=== PATIENT | male | born 1950 | race Caucasian/White ===

== ENCOUNTER 2016-10-27 12:14 | Emergency (ER) | payer OTHER ==
[~2016-10-27] VITALS: Ht 172.7 cm; Wt 100.7 kg
[~2016-10-27 12:14] MED LIST: ALBUTEROL0.09 MG/A2 IH; AMOXICILLIN500 MG PO; ANTIVERT/2525 MG PO; ATARAX25 MG PO; AUGMENTIN 875 M1 TA1 PO; AUGMENTIN 875 M1 TAB PO; AZITHROMYCIN500 M1 PO; BACTRIM DS 8001 TA1 PO; CIPRO500 MG PO; CIPROFLOXACIN500 MG PO; CLINDAMYCIN300 MG PO; COREG3.125 MG PO; COREG6.25 MG PO; DAYPRO600 M1 PO; ELIMITE 5%60 GM PO; FLONASE 0.05% 121 EA NAS; GABAPENTIN300 MG PO; GLIPIZIDE5 MG PO; GLUCOPHAGE500 MG PO; HYDROCODONE BIT1 T11 PO; HYDRODIURIL25 MG PO; KEFLEX500 MG PO; LISINOPRIL10 M1 PO; LISINOPRIL10 MG PO; LISINOPRIL5 MG PO; LOPRESSOR25 MG PO; MECLIZINE HCL25 M2 PO; MEDROL DOSEPAK4 MG PO; METFORMIN HCL500 MG PO; METFORMIN HYDR500 M1 PO; METFORMIN500 MG PO; MOTRIN800 MG PO; NAPROSYN500 MG PO; NEURONTIN300 MG PO; PREDNISONE10 MG PO; PREVACID SOLUTA30 MG PO; ROBAXIN750 MG PO; TYLENOL W/CODEI1 TA2 PO; VENTOLIN H0.09 MG/AC INH; ZITHROMAX Z PA250 MG PO
[2016-10-27 12:37] LABS: BILIRUBIN NEGATIVE (NEGATIVE); BLOOD 3+ (NEGATIVE); CLARITY TURBID (CLEAR); COLOR YELLOW (YELLOW); GLUCOSE 2+ (NEGATIVE); KETONE NEGATIVE (NEGATIVE); LEUKO ESTERASE 3+ (NEGATIVE); NITRITE POSITIVE (NEGATIVE); PH 8.5 (5.0-9.0); PROTEIN 3+ (NEGATIVE)
[2016-10-27 12:51] LABS: BACTERIA 3+; WBC TNTC wbc/hpf (0-5)
[2016-10-27 12:52] LABS: URINE REFLEX COMMENT YES (NO)
[2016-10-27] MEDS ORDERED: MACROBID100 M1 PO (12:54)
== END 2016-10-27 12:57 | disposition home or self-care (01) ==
LOC: ED 12:14
PROVIDERS: Nurse Practitioner Family
DX: N39.0 Urinary tract infection, site not specified (principal); R31.9 Hematuria, unspecified; R03.0 Elevated blood-pressure reading, without diagnosis of hypertension; F17.200 Nicotine dependence, unspecified, uncomplicated

== ENCOUNTER 2016-11-10 07:54 | Inpatient (IN) | payer OTHER ==
[~2016-11-10] VITALS: Ht 175.2 cm; Wt 99.8 kg
[~2016-11-10 07:54] MED LIST changes: +MACROBID100 M1 PO
[2016-11-10 07:59] VITALS: BP 145/88
[2016-11-10] MEDS ORDERED: NOVAPLUS V0.09 MG/Ac INH (08:01)
[2016-11-10] MEDS ORDERED: GLUCOPHAGE500 M1 PO (08:02)
[2016-11-10 08:20] LABS: BILIRUBIN NEGATIVE (NEGATIVE); BLOOD 3+ (NEGATIVE); CLARITY CLOUDY (CLEAR); COLOR YELLOW (YELLOW); GLUCOSE TRACE (NEGATIVE); KETONE NEGATIVE (NEGATIVE); NITRITE POSITIVE (NEGATIVE); PH >= 9.0 (5.0-9.0); PROTEIN 2+ (NEGATIVE); SPECIFIC GRAVITY 1.015 (1.005-1.030)
[2016-11-10 08:30] LABS: HEMATOCRIT 52.4 % (42.0-52.0); HEMOGLOBIN 17.1 g/dl (14.0-18.0); MEAN CELL VOLUME 93.7 fl (80.0-94.0); MEAN CORPUSCULAR HGB 30.6 pg (27.0-31.0); MEAN CORPUSCULAR HGB CONC 32.6 g/dl (33.0-37.0); MEAN PLATELET VOLUME 9.8 fl (9.6-12.3); PLATELET COUNT AUTOMATED 298 10*3/uL (130-400); RED BLOOD COUNT 5.59 10*6/uL (4.50-5.90); RED CELL DISTRI WIDTH 13.2 % (0-14.5); WHITE BLOOD COUNT 24.4 10*3/uL (4.8-10.8)
[2016-11-10 08:37] VITALS: BP 148/72
[2016-11-10 08:38] LABS: INTERNATIONAL NORM RATIO 1.1 (2.0-3.5); PROTHROMBIN TIME 11.6 SECONDS (9.0-12.4)
[2016-11-10 08:39] LABS: LEUKO ESTERASE 2+ (NEGATIVE)
[2016-11-10 08:40] LABS: BACTERIA 4+; TRIP PHOS CRYSTALS 1+; URINE REFLEX COMMENT YES (NO); WBC 51-100 wbc/hpf (0-5)
[2016-11-10 08:48] LABS: ATYPICAL LYMPHS 1 % (0-0); MONOCYTE # 0.7 10*3/uL (0.1-1.0); NEUTROPHIL # 22.7 10*3/uL (2.3-7.9); NEUTROPHILS 93 % (47-73); PLATELET SUFFICIENCY NORMAL (NORMAL); TOTAL CELLS COUNTED 100 #CELLS
[2016-11-10 09:09] LABS: ALBUMIN 3.4 gm/dl (3.1-4.5); ALKALINE PHOSPHATASE 121 U/L (45-117); BUN 27 mg/dl (7-24); C-REACTIVE PROTEIN 7.16 MG/DL (0-0.3); CARBON DIOXIDE 24 mmol/L (21-32); CHLORIDE 104 mmol/L (98-107); CKMB 2.8 ng/ml (0.5-3.6); CPK 74 U/L (39-308); EST GLOM FILT AFRICAN AMERICAN > 60 ml/min; GLUCOSE 236 mg/dL (65-99); SGOT/AST 18 IU/L (3-35); SGPT/ALT 23 U/L (12-78); SODIUM 137 mmol/L (136-145); TOTAL PROTEIN 7.9 gm/dL (6.4-8.2)
[2016-11-10 09:16] LABS: TROPONIN I < 0.015 ng/ml (<0.045)
[2016-11-10 09:23] VITALS: BP 154/70
[2016-11-10 10:27] LABS: LA>2 REFLEX 2 HR DRAW NOW
[2016-11-10 10:31] VITALS: BP 135/74
[2016-11-10 10:46] LABS: LA>2 RFLX FOLLOW UP AT 2 HRS 2.7 mmol/L (0.4-2.0)
[2016-11-10 12:34] LABS: LA>2 REFLEX 4 HR DRAW NOW
[2016-11-10 16:00] VITALS: BP 159/64
[2016-11-10 20:00] VITALS: BP 143/60
[2016-11-11] VITALS: BP 101/45
[2016-11-11 06:50] LABS: HEMATOCRIT 50.1 % (42.0-52.0); HEMOGLOBIN 15.9 g/dl (14.0-18.0); MEAN CELL VOLUME 95.6 fl (80.0-94.0); MEAN CORPUSCULAR HGB 30.3 pg (27.0-31.0); MEAN CORPUSCULAR HGB CONC 31.7 g/dl (33.0-37.0); MEAN PLATELET VOLUME 9.9 fl (9.6-12.3); PLATELET COUNT AUTOMATED 261 10*3/uL (130-400); RED BLOOD COUNT 5.24 10*6/uL (4.50-5.90); RED CELL DISTRI WIDTH 13.5 % (0-14.5); WHITE BLOOD COUNT 13.3 10*3/uL (4.8-10.8)
[2016-11-11 07:14] LABS: ALBUMIN 2.9 gm/dl (3.1-4.5); ALKALINE PHOSPHATASE 105 U/L (45-117); BILIRUBIN, TOTAL 0.4 mg/dl (0.2-1.0); BUN 25 mg/dl (7-24); CARBON DIOXIDE 29 mmol/L (21-32); CHLORIDE 107 mmol/L (98-107); CHOLESTEROL 128 mg/dL (<200); EST GLOM FILT AFRICAN AMERICAN > 60 ml/min; GLUCOSE 133 mg/dL (65-99); POTASSIUM 4.4 mmol/L (3.5-5.1); SGOT/AST 19 IU/L (3-35); SGPT/ALT 24 U/L (12-78); SODIUM 140 mmol/L (136-145); TOTAL PROTEIN 7.4 gm/dL (6.4-8.2); TRIGLYCERIDES 145 mg/dl (<150); VLDL CHOLESTEROL 29 mg/dL (6-40)
[2016-11-11 07:21] LABS: FREE T4 1.02 ng/dl (0.76-1.46); HDL CHOLESTEROL 37 mg/dl (40-60); HEMOGLOBIN A1c 8.5 % (4.8-5.6); LDL CHOLESTEROL 62 mg/dL (9-159)
[2016-11-11 07:23] LABS: FOLIC ACID 12.14 ng/mL (>5.38)
[2016-11-11 07:44] LABS: EOSINOPHIL # 0.1 10*3/uL (0-0.4); EOSINOPHILS 1 % (1-4); LYMPHOCYTE # 2.7 10*3/uL (1.3-4.4); MONOCYTE # 1.6 10*3/uL (0.1-1.0); NEUTROPHIL # 8.9 10*3/uL (2.3-7.9); NEUTROPHILS 67 % (47-73); PLATELET SUFFICIENCY NORMAL (NORMAL); TOTAL CELLS COUNTED 100 #CELLS
[2016-11-11 08:00] VITALS: BP 150/78
[2016-11-11 11:48] VITALS: BP 170/80
[2016-11-11 16:00] VITALS: BP 160/72
[2016-11-11 20:00] VITALS: BP 166/78
[2016-11-12] VITALS: BP 174/83
[2016-11-12 05:57] LABS: BASO # 0.1 10*3/uL (0.0-0.1); BASO % 0.5 % (0.0-1.0); EOS # 0.2 10*3/uL (0.0-0.4); EOS % 2.2 % (1.0-4.0); HEMATOCRIT 47.2 % (42.0-52.0); IG # 0.1 10*3/uL (0.0-0.1); LYMPH # 2.2 10*3/uL (1.3-4.4); MEAN CELL VOLUME 95.7 fl (80.0-94.0); MEAN CORPUSCULAR HGB 30.4 pg (27.0-31.0); MEAN CORPUSCULAR HGB CONC 31.8 g/dl (33.0-37.0); MEAN PLATELET VOLUME 10.2 fl (9.6-12.3); MONO # 1.1 10*3/uL (0.1-1.0); MONO % 10.1 % (3.0-9.0); NEUT # 6.9 10*3/uL (2.3-7.9); NEUT % 65.7 % (47.0-73.0); PLATELET COUNT AUTOMATED 262 10*3/uL (130-400); RED BLOOD COUNT 4.93 10*6/uL (4.50-5.90); RED CELL DISTRI WIDTH 13.3 % (0-14.5); WHITE BLOOD COUNT 10.5 10*3/uL (4.8-10.8)
[2016-11-12 08:21] VITALS: BP 166/75
[2016-11-12 12:03] VITALS: BP 163/72
[2016-11-12] MEDS ORDERED: BACTRIM DS 8001 TA1 PO (13:37)
[2016-11-12 16:00] VITALS: BP 162/76
== END 2016-11-12 17:00 | disposition home or self-care (01) | DRG 871 ==
LOC: ED 07:54 → 4E 09:17 → EDHOLD 09:17 → 4E 09:30
PROVIDERS: Emergency Medicine; Internal Medicine Hospice and Palliative Medicine
DX: A41.9 Sepsis, unspecified organism (principal); N17.0 Acute kidney failure with tubular necrosis; N39.0 Urinary tract infection, site not specified; E44.0 Moderate protein-calorie malnutrition; R65.20 Severe sepsis without septic shock; R79.82 Elevated C-reactive protein (CRP); R74.8 Abnormal levels of other serum enzymes; E11.40 Type 2 diabetes mellitus with diabetic neuropathy, unspecified; E11.65 Type 2 diabetes mellitus with hyperglycemia; I10 Essential (primary) hypertension; F17.210 Nicotine dependence, cigarettes, uncomplicated; J44.9 Chronic obstructive pulmonary disease, unspecified; G89.29 Other chronic pain; M54.16 Radiculopathy, lumbar region; Z87.440 Personal history of urinary (tract) infections; Z80.9 Family history of malignant neoplasm, unspecified; Z79.84 Long term (current) use of oral hypoglycemic drugs; Z79.899 Other long term (current) drug therapy; Z71.6 Tobacco abuse counseling; Z68.32 Body mass index [BMI] 32.0-32.9, adult; R31.9 Hematuria, unspecified

== ENCOUNTER 2016-12-03 08:28 | Inpatient (IN) | payer OTHER ==
[2016-12-03] VITALS (7 sets, daily range): BP systolic 123–167; BP diastolic 60–86
[~2016-12-03] VITALS: Ht 175.2 cm; Wt 97.3 kg
[~2016-12-03 08:28] MED LIST changes: +GLUCOPHAGE500 M1 PO; +NOVAPLUS V0.09 MG/Ac INH
[2016-12-03 09:05] LABS: BILIRUBIN NEGATIVE (NEGATIVE); BLOOD 3+ (NEGATIVE); CLARITY CLOUDY (CLEAR); COLOR YELLOW (YELLOW); GLUCOSE TRACE (NEGATIVE); KETONE NEGATIVE (NEGATIVE); NITRITE NEGATIVE (NEGATIVE); PH 6.5 (5.0-9.0); PROTEIN 1+ (NEGATIVE); UROBILINOGEN 0.2 E.U./dl (0.2-1.0)
[2016-12-03 09:21] LABS: URINE REFLEX COMMENT YES (NO)
[2016-12-03 09:26] LABS: RBC 31-40 rbc/hpf (0-2); WBC TNTC wbc/hpf (0-5)
[2016-12-03 09:27] LABS: BACTERIA 2+; LEUKO ESTERASE 3+ (NEGATIVE)
[2016-12-03 10:09] LABS: HEMATOCRIT 45.3 % (42.0-52.0); HEMOGLOBIN 14.9 g/dl (14.0-18.0); MEAN CELL VOLUME 90.8 fl (80.0-94.0); MEAN CORPUSCULAR HGB 29.9 pg (27.0-31.0); MEAN CORPUSCULAR HGB CONC 32.9 g/dl (33.0-37.0); MEAN PLATELET VOLUME 9.7 fl (9.6-12.3); PLATELET COUNT AUTOMATED 381 10*3/uL (130-400); RED BLOOD COUNT 4.99 10*6/uL (4.50-5.90); RED CELL DISTRI WIDTH 13.2 % (0-14.5); WHITE BLOOD COUNT 25.2 10*3/uL (4.8-10.8)
[2016-12-03 10:21] LABS: POTASSIUM 4.4 mmol/L (3.5-5.1)
[2016-12-03 10:35] LABS: BASOPHIL # 0.3 10*3/uL (0-0.1); BASOPHILS 1 % (0-1); MONOCYTE # 0.3 10*3/uL (0.1-1.0); NEUTROPHIL # 23.7 10*3/uL (2.3-7.9); NEUTROPHILS 94 % (47-73); PLATELET SUFFICIENCY NORMAL (NORMAL); TOTAL CELLS COUNTED 100 #CELLS
[2016-12-03] MEDS ORDERED: NEURONTIN300 MG PO (11:47)
[2016-12-03] MEDS ORDERED: LISINOPRIL-HYDR1 TA1 PO (11:48)
[2016-12-03] MEDS ORDERED: METFORMIN ER500 MG PO (11:49)
[2016-12-03] MEDS ORDERED: VENTOLIN H0.09 MG/AC INH (11:50)
[2016-12-03 12:24] LABS: CKMB 1.6 ng/ml (0.5-3.6); CPK 69 U/L (39-308)
[2016-12-03 12:27] LABS: TROPONIN I < 0.015 ng/ml (<0.045)
[2016-12-03 18:24] LABS: CKMB 1.6 ng/ml (0.5-3.6); TROPONIN I 0.02 ng/ml (<0.045)
[2016-12-04] VITALS: BP 141/75
[2016-12-04 00:39] LABS: CKMB 1.8 ng/ml (0.5-3.6); TROPONIN I 0.028 ng/ml (<0.045)
[2016-12-04 07:00] LABS: BASO % 0.2 % (0.0-1.0); EOS # 0.1 10*3/uL (0.0-0.4); EOS % 0.4 % (1.0-4.0); HEMOGLOBIN 13.2 g/dl (14.0-18.0); IG # 0.1 10*3/uL (0.0-0.1); LYMPH # 1.7 10*3/uL (1.3-4.4); LYMPH % 7.6 % (27.0-41.0); MEAN CELL VOLUME 93.8 fl (80.0-94.0); MEAN CORPUSCULAR HGB 29.5 pg (27.0-31.0); MEAN CORPUSCULAR HGB CONC 31.4 g/dl (33.0-37.0); MEAN PLATELET VOLUME 10.2 fl (9.6-12.3); MONO # 1.4 10*3/uL (0.1-1.0); MONO % 6.4 % (3.0-9.0); NEUT # 18.6 10*3/uL (2.3-7.9); NEUT % 84.8 % (47.0-73.0); PLATELET COUNT AUTOMATED 364 10*3/uL (130-400); RED BLOOD COUNT 4.48 10*6/uL (4.50-5.90); RED CELL DISTRI WIDTH 13.5 % (0-14.5); WHITE BLOOD COUNT 21.9 10*3/uL (4.8-10.8)
[2016-12-04 07:34] LABS: ALBUMIN 2.1 gm/dl (3.1-4.5); MAGNESIUM 1.9 mg/dL (1.5-2.1); POTASSIUM 4.2 mmol/L (3.5-5.1)
[2016-12-04 07:36] LABS: BILIRUBIN, TOTAL 0.6 mg/dl (0.2-1.0); PHOSPHOROUS 1.9 mg/dL (2.5-4.9); TOTAL PROTEIN 7.1 gm/dL (6.4-8.2)
[2016-12-04 08:00] VITALS: BP 146/74
[2016-12-04 12:00] VITALS: BP 157/71
[2016-12-04 16:00] VITALS: BP 153/77
[2016-12-04 20:00] VITALS: BP 114/71
[2016-12-05] VITALS: BP 150/61
[2016-12-05 06:37] LABS: BASO % 0.2 % (0.0-1.0); EOS # 0.1 10*3/uL (0.0-0.4); EOS % 0.8 % (1.0-4.0); HEMATOCRIT 38.3 % (42.0-52.0); HEMOGLOBIN 12.2 g/dl (14.0-18.0); IG # 0.1 10*3/uL (0.0-0.1); LYMPH # 1.4 10*3/uL (1.3-4.4); LYMPH % 9.2 % (27.0-41.0); MEAN CELL VOLUME 94.6 fl (80.0-94.0); MEAN CORPUSCULAR HGB 30.1 pg (27.0-31.0); MEAN CORPUSCULAR HGB CONC 31.9 g/dl (33.0-37.0); MEAN PLATELET VOLUME 9.9 fl (9.6-12.3); MONO # 1.2 10*3/uL (0.1-1.0); MONO % 7.6 % (3.0-9.0); NEUT # 12.7 10*3/uL (2.3-7.9); NEUT % 81.6 % (47.0-73.0); PLATELET COUNT AUTOMATED 386 10*3/uL (130-400); RED BLOOD COUNT 4.05 10*6/uL (4.50-5.90); RED CELL DISTRI WIDTH 13.5 % (0-14.5); WHITE BLOOD COUNT 15.5 10*3/uL (4.8-10.8)
[2016-12-05 08:00] VITALS: BP 142/68
[2016-12-05 12:00] VITALS: BP 176/70
[2016-12-05 16:00] VITALS: BP 149/61
[2016-12-05 20:00] VITALS: BP 167/67
[2016-12-06 00:27] VITALS: BP 160/60
[2016-12-06 05:58] LABS: BASO % 0.2 % (0.0-1.0); EOS # 0.2 10*3/uL (0.0-0.4); HEMATOCRIT 39.9 % (42.0-52.0); HEMOGLOBIN 12.7 g/dl (14.0-18.0); IG # 0.1 10*3/uL (0.0-0.1); LYMPH # 1.6 10*3/uL (1.3-4.4); LYMPH % 10.9 % (27.0-41.0); MEAN CELL VOLUME 93.4 fl (80.0-94.0); MEAN CORPUSCULAR HGB 29.7 pg (27.0-31.0); MEAN CORPUSCULAR HGB CONC 31.8 g/dl (33.0-37.0); MONO # 1.2 10*3/uL (0.1-1.0); NEUT # 11.5 10*3/uL (2.3-7.9); NEUT % 79.5 % (47.0-73.0); PLATELET COUNT AUTOMATED 425 10*3/uL (130-400); RED BLOOD COUNT 4.27 10*6/uL (4.50-5.90); RED CELL DISTRI WIDTH 13.6 % (0-14.5); WHITE BLOOD COUNT 14.5 10*3/uL (4.8-10.8)
[2016-12-06 06:30] LABS: CARBON DIOXIDE 28 mmol/L (21-32); CHLORIDE 108 mmol/L (98-107); EST GLOM FILT AFRICAN AMERICAN > 60 ml/min; GLUCOSE 184 mg/dL (65-99); POTASSIUM 4.3 mmol/L (3.5-5.1); SODIUM 143 mmol/L (136-145)
[2016-12-06 06:32] LABS: BUN 20 mg/dl (7-24)
[2016-12-06 08:00] VITALS: BP 176/66
[2016-12-06 12:00] VITALS: BP 148/78
[2016-12-06 16:00] VITALS: BP 162/78
[2016-12-06] MEDS ORDERED: FLOMAX0.4 MG PO (16:40)
[2016-12-06] MEDS ORDERED: CIPRO500 MG PO (16:40)
== END 2016-12-06 16:54 | disposition home or self-care (01) | DRG 871 ==
LOC: ED 08:28 → EDHOLD 09:40 → 5E 09:40
PROVIDERS: Emergency Medicine; Family Medicine; Internal Medicine
DX: A41.9 Sepsis, unspecified organism (principal); N17.0 Acute kidney failure with tubular necrosis; E43 Unspecified severe protein-calorie malnutrition; E11.40 Type 2 diabetes mellitus with diabetic neuropathy, unspecified; J44.9 Chronic obstructive pulmonary disease, unspecified; E86.0 Dehydration; N39.0 Urinary tract infection, site not specified; R65.20 Severe sepsis without septic shock; F17.200 Nicotine dependence, unspecified, uncomplicated; I10 Essential (primary) hypertension; D64.9 Anemia, unspecified; D47.3 Essential (hemorrhagic) thrombocythemia; E55.9 Vitamin D deficiency, unspecified; E66.9 Obesity, unspecified; Z80.9 Family history of malignant neoplasm, unspecified; Z79.51 Long term (current) use of inhaled steroids; Z79.84 Long term (current) use of oral hypoglycemic drugs; Z79.899 Other long term (current) drug therapy; Z68.32 Body mass index [BMI] 32.0-32.9, adult

== ENCOUNTER 2016-12-17 17:53 | Emergency (ER) | payer OTHER ==
[~2016-12-17] VITALS: Ht 175.2 cm; Wt 99.8 kg
[~2016-12-17 17:53] MED LIST changes: +FLOMAX0.4 MG PO; +LISINOPRIL-HYDR1 TA1 PO; +METFORMIN ER500 MG PO
[2016-12-17] MEDS ORDERED: TAMSULOSIN HCL0.4 MG PO (18:37)
[2016-12-17 19:00] LABS: BILIRUBIN NEGATIVE (NEGATIVE); BLOOD TRACE-INTACT (NEGATIVE); CLARITY SL CLOUDY (CLEAR); COLOR YELLOW (YELLOW); GLUCOSE TRACE (NEGATIVE); KETONE NEGATIVE (NEGATIVE); LEUKO ESTERASE 1+ (NEGATIVE); NITRITE NEGATIVE (NEGATIVE); PROTEIN NEGATIVE (NEGATIVE); UROBILINOGEN 0.2 E.U./dl (0.2-1.0)
[2016-12-17 19:10] LABS: BACTERIA TRACE; URINE REFLEX COMMENT YES (NO); WBC 16-20 wbc/hpf (0-5)
[2016-12-17 19:12] LABS: BASO # 0.1 10*3/uL (0.0-0.1); BASO % 0.5 % (0.0-1.0); EOS # 0.2 10*3/uL (0.0-0.4); EOS % 1.5 % (1.0-4.0); HEMATOCRIT 45.3 % (42.0-52.0); HEMOGLOBIN 14.1 g/dl (14.0-18.0); LYMPH # 2.6 10*3/uL (1.3-4.4); LYMPH % 23.4 % (27.0-41.0); MEAN CELL VOLUME 93.4 fl (80.0-94.0); MEAN CORPUSCULAR HGB 29.1 pg (27.0-31.0); MEAN CORPUSCULAR HGB CONC 31.1 g/dl (33.0-37.0); MEAN PLATELET VOLUME 9.7 fl (9.6-12.3); MONO # 0.8 10*3/uL (0.1-1.0); MONO % 7.2 % (3.0-9.0); NEUT # 7.4 10*3/uL (2.3-7.9); PLATELET COUNT AUTOMATED 386 10*3/uL (130-400); RED BLOOD COUNT 4.85 10*6/uL (4.50-5.90); RED CELL DISTRI WIDTH 13.3 % (0-14.5); WHITE BLOOD COUNT 11.1 10*3/uL (4.8-10.8)
[2016-12-17 19:27] LABS: ALBUMIN 3.2 gm/dl (3.1-4.5); ALKALINE PHOSPHATASE 118 U/L (45-117); BILIRUBIN, TOTAL 0.2 mg/dl (0.2-1.0); BUN 23 mg/dl (7-24); CARBON DIOXIDE 29 mmol/L (21-32); CHLORIDE 105 mmol/L (98-107); EST GLOM FILT AFRICAN AMERICAN > 60 ml/min; GLUCOSE 155 mg/dL (65-99); POTASSIUM 5.6 mmol/L (3.5-5.1); SGOT/AST 20 IU/L (3-35); SGPT/ALT 28 U/L (12-78); SODIUM 140 mmol/L (136-145); TOTAL PROTEIN 7.8 gm/dL (6.4-8.2)
[2016-12-17] MEDS ORDERED: CIPRO500 MG PO (20:12)
[2016-12-17] MEDS ORDERED: FLOMAX0.4 MG PO (20:18)
== END 2016-12-17 20:20 | disposition home or self-care (01) ==
LOC: ED 17:53
PROVIDERS: Nurse Practitioner Family
DX: R33.9 Retention of urine, unspecified (principal); F17.200 Nicotine dependence, unspecified, uncomplicated; E66.9 Obesity, unspecified; G89.29 Other chronic pain; J44.9 Chronic obstructive pulmonary disease, unspecified; E11.40 Type 2 diabetes mellitus with diabetic neuropathy, unspecified; I10 Essential (primary) hypertension; Z79.899 Other long term (current) drug therapy

== ENCOUNTER 2016-12-18 07:05 | Emergency (ER) | payer OTHER ==
[~2016-12-18] VITALS: Ht 175.2 cm; Wt 99.8 kg
[~2016-12-18 07:05] MED LIST changes: +TAMSULOSIN HCL0.4 MG PO
== END 2016-12-18 08:47 | disposition home or self-care (01) ==
LOC: ED 07:05
DX: R33.9 Retention of urine, unspecified (principal); F17.200 Nicotine dependence, unspecified, uncomplicated; I10 Essential (primary) hypertension; E11.9 Type 2 diabetes mellitus without complications; J44.9 Chronic obstructive pulmonary disease, unspecified

== ENCOUNTER 2016-12-24 09:53 | Emergency (ER) | payer OTHER ==
[~2016-12-24] VITALS: Ht 175.2 cm; Wt 99.8 kg
[2016-12-24 10:44] LABS: BASO % 0.4 % (0.0-1.0); EOS # 0.2 10*3/uL (0.0-0.4); EOS % 1.6 % (1.0-4.0); HEMATOCRIT 47.5 % (42.0-52.0); HEMOGLOBIN 14.8 g/dl (14.0-18.0); LYMPH % 21.8 % (27.0-41.0); MEAN CELL VOLUME 94.1 fl (80.0-94.0); MEAN CORPUSCULAR HGB 29.3 pg (27.0-31.0); MEAN CORPUSCULAR HGB CONC 31.2 g/dl (33.0-37.0); MEAN PLATELET VOLUME 9.7 fl (9.6-12.3); MONO # 0.6 10*3/uL (0.1-1.0); NEUT # 6.5 10*3/uL (2.3-7.9); PLATELET COUNT AUTOMATED 313 10*3/uL (130-400); RED BLOOD COUNT 5.05 10*6/uL (4.50-5.90); RED CELL DISTRI WIDTH 13.7 % (0-14.5); WHITE BLOOD COUNT 9.3 10*3/uL (4.8-10.8)
[2016-12-24 10:48] LABS: BILIRUBIN NEGATIVE (NEGATIVE); BLOOD NEGATIVE (NEGATIVE); CLARITY CLEAR (CLEAR); COLOR YELLOW (YELLOW); GLUCOSE NEGATIVE (NEGATIVE); KETONE NEGATIVE (NEGATIVE); LEUKO ESTERASE TRACE (NEGATIVE); NITRITE NEGATIVE (NEGATIVE); PROTEIN NEGATIVE (NEGATIVE); SPECIFIC GRAVITY <= 1.005 (1.005-1.030); UROBILINOGEN 0.2 E.U./dl (0.2-1.0)
[2016-12-24 10:59] LABS: ALBUMIN 3.2 gm/dl (3.1-4.5); ALKALINE PHOSPHATASE 115 U/L (45-117); BILIRUBIN, TOTAL 0.3 mg/dl (0.2-1.0); BUN 16 mg/dl (7-24); CARBON DIOXIDE 28 mmol/L (21-32); CHLORIDE 105 mmol/L (98-107); EST GLOM FILT AFRICAN AMERICAN > 60 ml/min; GLUCOSE 224 mg/dL (65-99); SGOT/AST 15 IU/L (3-35); SGPT/ALT 23 U/L (12-78); SODIUM 139 mmol/L (136-145); TOTAL PROTEIN 7.7 gm/dL (6.4-8.2)
[2016-12-24 11:00] LABS: TROPONIN I < 0.015 ng/ml (<0.045)
[2016-12-24 11:05] LABS: BACTERIA 1+; URINE REFLEX COMMENT YES (NO)
[2016-12-24] MEDS ORDERED: AMINOPHYLLIN200 MG PO (11:19)
[2016-12-24 12:39] LABS: LA>2 REFLEX 2 HR DRAW NOW
== END 2016-12-24 11:45 | disposition home or self-care (01) ==
LOC: ED 09:53
PROVIDERS: Registered Nurse
DX: N30.00 Acute cystitis without hematuria (principal); E11.65 Type 2 diabetes mellitus with hyperglycemia; G89.29 Other chronic pain; I10 Essential (primary) hypertension; F17.200 Nicotine dependence, unspecified, uncomplicated; J44.9 Chronic obstructive pulmonary disease, unspecified; E11.40 Type 2 diabetes mellitus with diabetic neuropathy, unspecified; Z91.19 Patient's noncompliance with other medical treatment and regimen; Z79.899 Other long term (current) drug therapy; Z79.4 Long term (current) use of insulin

== ENCOUNTER → 2017-02-16 | Outpatient (CLI) | payer OTHER ==
[~2017-02-16] MED LIST changes: +AMINOPHYLLIN200 MG PO
== END | disposition home or self-care (01) ==
LOC: RESCLI 04:12
DX: E11.65 Type 2 diabetes mellitus with hyperglycemia (principal); E66.09 Other obesity due to excess calories; J44.9 Chronic obstructive pulmonary disease, unspecified; I10 Essential (primary) hypertension; F17.200 Nicotine dependence, unspecified, uncomplicated; Z79.4 Long term (current) use of insulin

== ENCOUNTER 2017-04-16 16:17 | Inpatient (IN) | payer OTHER ==
[~2017-04-16] VITALS: Ht 175.3 cm; Wt 91.4 kg
[2017-04-16] VITALS (7 sets, daily range): BP systolic 101–172; BP diastolic 50–90
--- NOTE | ~2017-04-16 | CON ---
[place], [place] REPORT OF CONSULTATION NAME: SHERRILL STONE UNIT #: [id number] ROOM: [place] [address] DOCTOR: RAHUL LOPEZ,EMANUEL Hanley BIRTHDATE: [birth year] DOS: 04/19/2017 ADDENDUM After reviewing the chart, examining the labs and radiographs, I agree with the above plans as described above. We will follow the patient up clinically and make adjustments accordingly. EMANUEL KAY MD CM:CONSTR:REPORT OF CONSULTATION 1406 04/21/17 1445 interface
--- NOTE | ~2017-04-16 | CON ---
[place], [place] REPORT OF CONSULTATION NAME: SHERRILL STONE UNIT #: [id number] ROOM: [place] [address] DOCTOR: DILLON LOPEZ,EVANGELINA BIRTHDATE: [birth year] DOS: 04/20/2017 I was called to evaluate this patient in the ICU after he developed bradycardia and apnea. His condition had deteriorated quickly and on my arrival cardiopulmonary resuscitation was in progress. The emergency team was present and Anesthesia was available for intubation. The patient was unresponsive. Pupils were reactive to light. Hand ventilation with a bag valve mask was in progress. Cardiac rhythm on the bedside monitor was asystole and after intervention, the patient had moderate bradycardia and quickly responded to . Intubation was completed by the anesthesiology staff. Cardiac massage was in progress and pulses were palpable with chest compressions. His condition was improved with the return of regular rhythm, but mild hypotension. Examining him, pupils were reactive to light. NECK: Supple. Neck veins slightly distended. CHEST: Symmetrical bibasilar rales. HEART: Regular . ABDOMEN: Obese, soft, nontender. Bowel sounds are present in all 4 quadrants. EXTREMITIES: No significant edema and pulses were palpable. I recommended post-cardiac arrest care. Chest x-ray showed ET tube in the airway with the tip immediately above the tee. I did recommend pulling the ET tube back a little to prevent intubation of the right main bronchus. Arterial blood gas has been ordered. Stat EKG ordered. Ventilator settings, tidal volume 500, assist control 12, FiO2 of 50%. I did recommend PEEP, but his blood pressure was a little too low, so we held off on the PEEP until the blood pressure could be more stable. Stat troponin level, stat CBC and stat chemistry. Consult with Dr. Garces, captain of guards. No family was available for me to discuss the patient's condition and prognosis. DIAGNOSIS: Cardiopulmonary arrest, successful return to spontaneous respirations. Continue ventilation at the same settings. Blood gases are pending. Discussed with the house staff. The patient's condition critical. EVANGELINA CARRANZA MD CM:CONSTR:REPORT OF CONSULTATION 0303 04/21/17 0512 interface
--- NOTE | ~2017-04-16 | CON ---
[place], [place] REPORT OF CONSULTATION NAME[facility] STONE [id number] UN[facility] #: [id number] ROOM: [place] [address] DOCTOR: HONEY CARIAS MD BIRTHDATE: [birth year] DOS: 04/20/2017 CONSULTATION REQUESTED BY: Hospitalist services. REASON FOR CONSULTATION: Acute respiratory failure on this morning with bradyarrhythmias. HISTORY OF PRESENT ILLNESS: This is a 66-year-old white male who has been admitted to the hospital on 04/16/2017. He has been brought to the hospital and hospitalized under care of the hospitalist services. The history for this patient and other records of the patient were essentially reviewed for patient current documentation, medical record, on this hospitalization and previous records reviewed. The patient unable to give me the history. Some other history has been obtained from the patient's niece as well who has been at bedside at this time of the assessment the morning at 9:00 a.m. The patient has been admitted to the hospital by the family members in the car. He has been living by himself at home. The patient was noted with a decreased responsiveness and has been noted inability to get up by himself because of progressive weakness, which has been described. The patient also reported symptoms of shortness of breath, has increased urination and burning of the urine. The patient has been admitted to the hospital and diagnosed with acute kidney injury with rhabdomyolysis and other problems. The patient has been treated for that in the Intensive Care Unit. This morning, he has been noted with progressive unresponsiveness, difficulty to be aroused and also developed bradyarrhythmia. The rapid response team was called. The patient was resuscitated with CPR and also administered some medications. He was intubated and started on mechanical ventilation. The mental status seemed to be better later on after completion of code while the patient was intubated. Currently, the patient has been getting intravenous propofol for the sedation management. Hypotension was also noted. He has been started on Levophed that has been continued as well. The patient has not been noted any symptoms of hemoptysis. He has not been noted any symptoms of aspiration. REVIEW OF SYSTEMS: Certainly cannot be completed because of the patient's inability to work to communicate. PAST MEDICAL HISTORY: Reported as: 1. History of chronic obstructive pulmonary disease. 2. Type 2 diabetes mellitus. 3. Diabetic nephropathy and neuropathy. 4. Essential hypertension. 5. Lumbar radiculopathy. 6. History of noncompliance. 7. Asbestos-related lung disease was also reported. 8. History of chronic pain. 9. Vitamin D deficiency. SOCIAL HISTORY: The patient lives by himself, not , and does not have any children. He has not been noted any history of alcohol use. Tobacco use [place], [place] REPORT OF CONSULTATION NAME: SHERRILL STONE UNIT #: [id number] ROOM: [place] [address] DOCTOR: JONE PLEITEZ MD,HONEY BIRTHDATE: [birth year] noted for many years and 2 packs of cigarettes per day. PAST SURGICAL HISTORY: Was not described any known past surgeries. FAMILY HISTORY: The patient's brother has been noted with history of cancer. Sister also has been noted history of cancer in both the sides. All the cancer was unknown. The parents have been 60+ years. MEDICATIONS: I reviewed all the medications from home were listed, but reported on admission as use of Ventolin HFA, Neurontin, Zestoretic, metformin and Flomax. Current medications administered were noted as use of IV Levophed, IV propofol, Neurontin, DuoNeb, heparin 5000 b.i.d. subq for DVT prophylaxis, IV vancomycin, cefepime, and other p.r.n. medications administration ongoing at this time. DRUG ALLERGIES HISTORY: Noted no known drug allergies. PHYSICAL EXAMINATION: GENERAL: The patient is a 66-year-old male who has been currently intubated on mechanical ventilator, sedated with intravenous Diprivan. Height of 5 feet 9 inches, weight 221 pounds, BMI 29.7. VITAL SIGNS: Shows temperature noted as 103 degree Fahrenheit rectal temperature in the past 24 hours intermittently. The respiratory rate recorded as 19 on the mechanical ventilator at this time, previous noted 32. Heart rate noted this morning as 69-109 with a normal sinus rhythm. The blood pressure was noted as 117/47-133/49 with current vasopressors administration, blood pressure noted systolic 70 lower during the code and right after the code. HEENT: Currently orally intubated. Gastric tube is in place. NECK: Supple. Head was atraumatic. Pupils were noted as small in size, reactive to light. CARDIOVASCULAR: S1, S2 audible. LUNGS: [id number] decreased breath sounds without any wheeze or crackles heard at the present time. ABDOMEN: Noted with moderate obesity, hyperactive bowel sounds. CENTRAL NERVOUS SYSTEM: The patient is sedated with intravenous Diprivan for further assessment could not be done. SKIN: Showed no lesions or rashes. MUSCULOSKELETAL: No gross deformities. LABORATORY DATA: PT, PTT of 04/16/2017 was noted as normal on admission. Lactic acid 3.9 on admission. CMP was done on 04/16/2017 shows BUN of 71, creatinine of 2.37, glucose 331, carbon dioxide 20. The CPK was noted 4622 with myoglobin 4700. ProBNP 1555, CK-MB been noted 12.8 and troponin minimally elevated at 0.056. ESR on admission noted as 40.0. Followup lactic acid of the same day on 04/16/2017, were noted normal as 2.0. Other troponin was also repeated, which was noted with minimal elevation with 2 additional sets. CMP on 04/17/2017 shows BUN 68, creatinine 1.69. Glucose is elevated at 444. Albumin was noted at 2.5. CPK-MB and troponin repeated 04/17/2017, shows CPK 3434 with myoglobin decreased at 1997. CBC on 04/18/2017, WBC count 16.3, hemoglobin and hematocrit normal, platelet count was normal. The laboratory data that was done [place], [place] REPORT OF CONSULTATION NAME: SHERRILL STONE UNIT #: [id number] ROOM: [place] [address] DOCTOR: JONE PLEITEZ MD,[facility] BIRTHDATE: [birth year] this morning, CMP obtained this morning shows BUN 49, creatinine 1.89, glucose 260, and carbon dioxide of 21. Albumin was 1.5 severely decreased, AST 39. PSA mildly elevated at 6.02. Lactic acid noted at 1.2 this morning. CPK has been decreased to 332. Arterial blood gases, pH of 7.29, pCO2 of 44, pO2 of 86 on 50% oxygen, tidal volume 500 mL, rate of 12 without the PEEP. RADIOLOGY DATA: Done related to the lungs, and chest on this hospitalization. The chest x-ray that was done on admission on 04/16/2017 was reviewed, does not show any acute pulmonary pathologies. Chest x-ray that was done on 04/18/2017 was noted without any acute abnormalities either. Chest x-ray that was done this morning was noted with possibility of infiltration in the right lower lobe. The endotracheal tube was noted to follow up chest x-ray to see with some pulmonary venous congestion markings. CT of the chest that was done on 04/18/2017 during this hospitalization does not show any acute abnormalities, small calcifications of the pleural fluid noted in the left lung. There were no gross lung masses, lymphadenopathy or other abnormalities noted with the review of the CT scan of the chest. The microbiology data reviewed. The blood culture of the patient, which were taken yesterday was noted as negative. Blood culture was noted as Morganella morganii. The patient was noted with the urine cultures of 04/16/2017 shows similar organisms. Blood culture from 04/17/2017, another set was also noted abnormal with gram negative rods. Blood culture, which were done yesterday does not show any bacterial growth preliminary at this time. Final cultures are pending. Endotracheal aspirate was taken post-intubation with pending results. IMPRESSION: 1. The patient has not been currently admitted to the hospital noted with unresponsiveness secondary to acute severe sepsis related to urinary tract infection with Morganella morganii as well as bacteremia. 2. Resolution of the rhabdomyolysis noted since admission because of possibly to sepsis and possibility lying on the floor with unresponsiveness for unknown period of time. 3. Acute kidney injury that was noted on admission seemed to be resolving mild bump in the creatinine may be related to current acute sepsis. 4. Bradyarrhythmia at this time, etiology may be cardiac or otherwise the patient at this time was unknown. 5. Status post short resuscitation with ACLS protocol and hypotension related to the above. 6. Possibility of right lower lobe pneumonia and/or atelectasis cannot be completely excluded. 7. The patient with metabolic acidosis still noted with a normal lactic acid. The acidosis, most likely related to the underlying acute kidney injury. 8. History of chronic heavy nicotine dependence. 9. Pleural plaques, possibility is either chronic infection in the past with pneumonia or related to the asbestos exposure. The patient could be considered; however, this is not pathological abnormality that required further immediate assessment or intervention. 10. Rule out any anoxic injury to the brain during the resuscitation as well for further close assessment and monitoring. [place], [place] REPORT OF CONSULTATION NAME: SHERRILL STONE UNIT #: [id number] ROOM: [place] [address] DOCTOR: JONE PLEITEZ MD,HONEY BIRTHDATE: [birth year] 11. Mild obesity was also known. 12. History of type 2 diabetes mellitus, which are noted intermittently controlled with hyperglycemia on this admission. PLAN AND MANAGEMENT: Continue vasopressor therapy. Start the patient on PEEP of 7 cm of water. Monitor culture results on endotracheal aspirate. Monitor culture results. Continue current broad spectrum of intravenous antibiotics including gram-positive coverage if the patient was developing any pneumonia in the right lower lobe. The patient with elevation in temperature would be covered for MRSA. Continue with gram-negative coverage for urinary tract infection as well. Monitor urinary output. Continue vasopressors to maintain the mean arterial pressure of 65 or greater. DVT prophylaxis. Continue with heparin. Other supportive therapy, plan and management and care. Repeat arterial blood gas in couple of hours for changes of the current mechanical ventilation to determine further changes that might be needed for the mechanical ventilator to improve his oxygenation and ventilatory status. Other supportive plan of management, ventilator bundle management. Consider starting the patient on oral nutrition support from the orogastric tube if not contraindicated. Pulmonary critical care evaluation and management was 40 minutes. HONEY BECERRIL MD CM:CONSTR:REPORT OF CONSULTATION 1255 04/21/17 0342 interface
--- NOTE | ~2017-04-16 | PROC NOTE ---
[place], [place] PROCEDURE NOTE NAME: SHERRILL STONE UNIT #: [id number] ROOM: [place] [address] DOCTOR: MERARY CORNELL CRNA BIRTHDATE: [birth year] DOS: 04/20/2017 Called to ICU for Code Blue. Upon arrival, CPR in progress. The patient being ventilated by Ambu bag, 100% O2. Decision was made by Dr. Parker to intubate the patient. The patient intubated with an 8 mm ET tube without difficulty with a 2 Calderón blade with positive breath sounds, positive end-tidal CO2 as per colorimetric device. Tube secured at 22 cm at the lips. Patient with spontaneous return of circulation immediately afterwards. MERARY CORNELL CRNA CM:PROCNOTE:PROCEDURE NOTE 1749 0010 MERARY CORNELL CRNA
--- NOTE | ~2017-04-16 | CON ---
[place], [place] REPORT OF CONSULTATION NAME: SHERRILL STONE UNIT #: [id number] ROOM: [place] [address] DOCTOR: RENU LI,OCTOBER BIRTHDATE: [birth year] DOS: HISTORY OF PRESENT ILLNESS: The patient is a 66-year-old male who is admitted on April 16 from his car. He had been living in his car. He was found by his family members to be increasingly sick and weak. He was admitted. At that time, he was very poor historian. He was having difficulty urinating. His admitting blood cultures have grown Morganella. His urine cultures on admission grew Morganella. His urinalysis was negative for nitrites but +3 leukocyte esterase and WBCs too numerous to count. He had a CT of the abdomen and pelvis, which demonstrated a large prostate, but no obstructing renal stones or hydronephrosis. He did have bladder wall thickening, had a catheter in at that time, but that has since been removed, it was removed approximately 2 days ago. The patient states he has had significant difficulty urinating since then. He had CTA of the chest which did not demonstrate any infiltrate or PE that was done yesterday on the . Chest x-rays have been clear. Repeat blood cultures from today are pending. He had positive blood cultures on the and . His MRSA screen was negative. ID is consulted due to recurrent fevers. He went up to 102 today and rising WBCs up to 19.5, now his sed rate 77, BUN has come down to 39 from the 60s when he was admitted. Creatinine has also improved from 2.37-1.45. He is currently receiving meropenem and Levaquin. He is also complaining of neck pain, which he states he has had somewhat intermittently, but it is worse today, but he did not have it at the time of admission or becoming sick. PAST MEDICAL HISTORY: As above as well as chronic pain, COPD, neuropathy, hypertension, lumbar radiculopathy, medical noncompliance, obesity, pulmonary asbestosis, malnutrition, vitamin D deficiency. SOCIAL HISTORY: He is a smoker with greater than [id number] history. No alcohol or illicit drug use. He apparently had been living in his car. FAMILY MEDICAL HISTORY: Brother had cancer of unknown type. Both his parents are of unknown causes. ALLERGIES: No known drug allergies. LABORATORY DATA: Again, sed rate 77. WBC is 19.5, this is going up; platelets 302. BUN 39, creatinine 1.45. AST 66, ALT 60, alk phos 113. Albumin 1.8. Cultures as above. REVIEW OF SYSTEMS: As above in history of present illness. Again, he does complain of difficulty urinating, no hematuria. States he has been unable to adequately pass urine since Beaulieu catheter was removed and he has been having trouble prior to that. He also reportedly has a history of prostate issues and has enlarged prostate on a CT. Again, he is complaining of neck and shoulder pain, 9/10, which he states has been intermittent, but was not present at the time when he came into the hospital. No nausea, vomiting or diarrhea. No rash or itch, has a loose cough, no shortness of breath. He has been febrile for the last 4 days intermittently, up to 102 today. No joint swelling or pain other than the neck. Further review of systems is unremarkable. [place], [place] REPORT OF CONSULTATION NAME: SHERRILL STONE UNIT #: [id number] ROOM: [place] [address] DOCTOR: RENU LI,OCTOBER BIRTHDATE: [birth year] PHYSICAL EXAMINATION: VITAL SIGNS: Temperature 97.9, pulse 82, respirations 26, BP 123/57. GENERAL: A 66-year-old male in no acute distress. HEAD, EYES, EARS, NOSE AND THROAT: Normocephalic, no thrush. NECK: No cervical lymphadenopathy. He does not have tenderness along his cervical vertebrae or thoracic. LUNGS: A few rales in left base. Respirations even and unlabored, loose cough noted. HEART: Regular rhythm. No murmur appreciated. ABDOMEN: Soft, does have tenderness in the suprapubic area. He is moderately obese and it is difficult to discern distended bladder. Positive bowel sounds. EXTREMITIES: No edema, deformity or cyanosis. SKIN: Warm, dry, free of rashes. ASSESSMENT: Morganella septicemia due to urinary retention and complicated urinary tract infection. PLAN: At this point, I suspect he is retaining urine. He certainly seems to be sure of that. We will get a bladder scan to confirm and have a Beaulieu catheter replaced if greater than 100 mL, which I expect there will be that should help with WBCs and fevers. The antibiotics can be consolidated to Rocephin 2 grams IV daily. If he continues to complain of neck and shoulder pain, then he will need an MRI of the cervical and possibly upper thoracic spine to rule out vertebral osteo. Case discussed with Dr. Emanuel Kay. ADDENDUM The patient may also have prostatitis, this certainly needs to be given consideration and may need Urology referral due to urinary retention. I will check a PSA. KATHIA JEN SEARS EMANUEL KAY MD CM:CONSTR:REPORT OF CONSULTATION 1458 04/20/17 0453 interface
[~2017-04-16 16:17] MED LIST changes: -LISINOPRIL-HYDR1 TA1 PO; +ZESTORETIC 20-1 EACH PO
[2017-04-16 16:51] LABS: HEMATOCRIT 51.5 % (42.0-52.0); HEMOGLOBIN 17.2 g/dl (14.0-18.0); MEAN CELL VOLUME 92.5 fl (80.0-94.0); MEAN CORPUSCULAR HGB 30.9 pg (27.0-31.0); MEAN CORPUSCULAR HGB CONC 33.4 g/dl (33.0-37.0); MEAN PLATELET VOLUME 10.3 fl (9.6-12.3); PLATELET COUNT AUTOMATED 319 10*3/uL (130-400); RED BLOOD COUNT 5.57 10*6/uL (4.50-5.90); RED CELL DISTRI WIDTH 13.7 % (0-14.5); WHITE BLOOD COUNT 20.6 10*3/uL (4.8-10.8)
[2017-04-16 17:00] LABS: INTERNATIONAL NORM RATIO 1.2 (2.0-3.5)
[2017-04-16 17:07] LABS: ALBUMIN 2.6 gm/dl (3.1-4.5); CREATININE 2.37 mg/dL (0.70-1.30); MAGNESIUM 2.8 mg/dL (1.5-2.1); POTASSIUM 4.9 mmol/L (3.5-5.1); TOTAL PROTEIN 8.5 gm/dL (6.4-8.2)
[2017-04-16 17:16] LABS: PLATELET SUFFICIENCY NORMAL (NORMAL); TOTAL CELLS COUNTED 100 #CELLS
[2017-04-16 17:17] LABS: CKMB 12.8 ng/ml (0.5-3.6); TROPONIN I 0.056 ng/ml (<0.045)
[2017-04-16 18:19] LABS: COLOR YELLOW (YELLOW)
[2017-04-16 18:20] LABS: BACTERIA 4+; BILIRUBIN NEGATIVE (NEGATIVE); BLOOD 1+ (NEGATIVE); CLARITY CLEAR (CLEAR); GLUCOSE NEGATIVE (NEGATIVE); KETONE 1+ (NEGATIVE); LEUKO ESTERASE 3+ (NEGATIVE); NITRITE NEGATIVE (NEGATIVE); SPECIFIC GRAVITY 1.015 (1.005-1.030); UROBILINOGEN 0.2 E.U./dl (0.2-1.0); WBC TNTC wbc/hpf (0-5)
--- NOTE | 2017-04-16 20:15 | NUR ---
A 66, admitted to ICCU, under the services of LUX Godinez DO with a diagnosis of SEVERE SEPSIS,RHABDOMYOLYSIS,DEHYDRATION. Chief complaint is COUGH. Patient arrived via stretcher from ER. Monitor applied. Initial assessment completed. Vital signs taken and recorded. LUX GODINEZ DO notified of admission to the unit. Orders received. See assessment for past medical history, medications and allergies. Patient and/or family oriented to unit. [facility]U visitation policy reviewed. Clothing/patient valuable form completed. VIOLET SERNA
--- NOTE | 2017-04-16 20:30 | NUR ---
PATIENT SO MICHAEL HAD TO BE BATHED ON ER CART BEFORE PUTTING INTO BED. PATIENT STATES HE DOESN'T KNOW WHY EVERYONE THINKS HE IS LIVING IN TRUCK. HE LIVES AT HOME ALONE. PATIENT IS COVERED IN OWN FECES HEAD TO TOE AND OTHER SUBSTANCES. R MIDDLE OF BACK HAS SLIGHT SLOUGH SKIN TEAR. DR BLANDON AT BEDSIDE.
[2017-04-16 21:24] LABS: CREATININE 2.15 mg/dL (0.70-1.30); POTASSIUM 5.1 mmol/L (3.5-5.1)
[2017-04-16 23:52] LABS: ABG BASE EXCESS -3.6 mmol/L (-2.0-2.0); ABG HCO3 20.9 mmol/l (22-26); ABG O2 SATURATION 96.2 % (95-97); ARTERIAL BLOOD GAS PCO2 38.1 mmHg (35-45); ARTERIAL BLOOD GAS PH 7.358 (7.35-7.45); ARTERIAL BLOOD GAS PO2 86.8 mmHg (80-90)
[2017-04-17] VITALS: BP 103/45
--- NOTE | 2017-04-17 02:00 | NUR ---
PATIENT WANTING SOMETHING TO EAT. SNACKS AND BEVERAGES PROVIDED.
--- NOTE | 2017-04-17 03:51 | NUR ---
COMPLETE BED CHANGE PERFORMED DUE TO INCONTINECE OF LARGE LIQ/LOOSE STOOL. RECTAL TEMP TAKEN 101.6. TYLENOL GIVEN.
[2017-04-17 04:00] VITALS: BP 117/51
[2017-04-17 04:41] LABS: BASO % 0.2 % (0.0-1.0); EOS % 0.1 % (1.0-4.0); LYMPH # 0.9 10*3/uL (1.3-4.4); LYMPH % 5.5 % (27.0-41.0); MEAN CELL VOLUME 94.1 fl (80.0-94.0); MEAN CORPUSCULAR HGB 30.3 pg (27.0-31.0); MEAN CORPUSCULAR HGB CONC 32.2 g/dl (33.0-37.0); MEAN PLATELET VOLUME 10.4 fl (9.6-12.3); MONO # 1.3 10*3/uL (0.1-1.0); MONO % 7.7 % (3.0-9.0); NEUT # 14.8 10*3/uL (2.3-7.9); PLATELET COUNT AUTOMATED 282 10*3/uL (130-400); RED BLOOD COUNT 4.72 10*6/uL (4.50-5.90); RED CELL DISTRI WIDTH 13.6 % (0-14.5); WHITE BLOOD COUNT 17.2 10*3/uL (4.8-10.8)
[2017-04-17 04:49] LABS: HEMATOCRIT 44.4 % (42.0-52.0); HEMOGLOBIN 14.3 g/dl (14.0-18.0)
[2017-04-17 04:55] LABS: ACT PARTIAL THROMBO TIME 28.8 SECONDS (20.8-31.5); INTERNATIONAL NORM RATIO 1.1 (2.0-3.5)
[2017-04-17 04:59] LABS: CREATININE 1.69 mg/dL (0.70-1.30); MAGNESIUM 2.5 mg/dL (1.5-2.1); POTASSIUM 5.1 mmol/L (3.5-5.1); TOTAL PROTEIN 6.5 gm/dL (6.4-8.2)
--- NOTE | 2017-04-17 05:37 | NUR ---
PATIENT BECOMING CONFUSED AND A LITTLE AGITATED.
[2017-04-17 07:04] LABS: VITAMIN D, 25-HYDROXY 11.1 ng/mL (30-100)
[2017-04-17 07:59] LABS: CKMB 9.9 ng/ml (0.5-3.6)
[2017-04-17 08:00] VITALS: BP 134/65
--- NOTE | 2017-04-17 08:36 | NUR ---
DR GOYAL NOTIFED OF POSITIVE BLOOD CULTURE AND CRITICAL CKMB RESULT. CKMB RESULT IS TRENDING DOWN.
--- NOTE | 2017-04-17 08:58 | NUR ---
DR GOYAL IN TO SEE PT. UPDATED HIM ON PT'S CONDITION.
--- NOTE | 2017-04-17 10:25 | NUR ---
DOCTOR NOTIFIED SECOND BOTTLE OF BLOOD CULTURES POSITIVE ALSO.
--- NOTE | 2017-04-17 11:16 | NUR ---
SHERRILL STONE [id number] Please refer to the physician's history and physical for past medical history, comorbid conditions, and allergies. Diagnosis: SEVERE SEPSIS RHABDOMYOLYSIS DEHYDRATION Ben Score: 12,HIGH RISK WOUND DESCRIPTIONS: Location of the wound: Right scapula Type of wound: skin tear Thickness: Partial Size: 0.3cm x 0.3cm x 0.1cm Tunneling: none Undermining: none Sinus Tract: none Presence of Exudate: Serous Amount: Light Color: Red Odor: None Periwound Skin Appearance: Normal Wound edges: approximated Pain (associated with wound): patient unable to respond How does patient state this happened? patient unable to respond Surface the patient is resting on: XPRT SKIN PREVENTION RECOMMENDATION: 1. Pressure redistribution support surface as appropriate 2. Elevate heels 3. Remove boots/TEDS every shift and reapply 4. Head of bed 30 degrees as tolerated 5. Assess nutrition and hydration 6. Manage moisture 7. Avoid the use of containment devices while in bed 8. Use absorptive products on surfaces limit layers of linens on bed 9. Turn and reposition every 1-2 hours in bed and every 1 hour in chair as tolerated 10. Weight shifts every 15 minutes while up in chair 11. Offloading with pillows or device to keep heels elevated off bed 12. Monitor skin at least every shift 13. Inspect under medical devices twice a day WOUND TREATMENT RECOMMENDATIONS: Skin tear guidlines: sureprep, hydrogel, versatel and optifoam gentle. Spoke with Dr. Lima for wound care orders.
[2017-04-17] MEDS ORDERED: FLOMAX0.4 MG PO (11:50)
[2017-04-17] MEDS ORDERED: GRALISE300 M1 PO (11:50)
--- NOTE | 2017-04-17 11:58 | NUR ---
REVEIWED HOME MEDS WITH PT AFTER I CALLED IBRAHIMA FARIA FOR LIST OF CURRENT HOME MEDS.
[2017-04-17 12:00] VITALS: BP 159/71
[2017-04-17 16:00] VITALS: BP 148/71
[2017-04-17 20:00] VITALS: BP 142/64
[2017-04-18] VITALS: BP 158/68
--- NOTE | 2017-04-18 01:49 | NUR ---
MEDICATED WITH PRN NORCO PER ORDER AND RQUEST FOR ACHING ALL OVER.
[2017-04-18 04:00] VITALS: BP 150/63
[2017-04-18 04:21] LABS: HEMOGLOBIN 13.8 g/dl (14.0-18.0); MEAN CELL VOLUME 94.8 fl (80.0-94.0); MEAN CORPUSCULAR HGB 31.2 pg (27.0-31.0); MEAN CORPUSCULAR HGB CONC 32.9 g/dl (33.0-37.0); PLATELET COUNT AUTOMATED 284 10*3/uL (130-400); RED BLOOD COUNT 4.43 10*6/uL (4.50-5.90); RED CELL DISTRI WIDTH 13.9 % (0-14.5); WHITE BLOOD COUNT 16.3 10*3/uL (4.8-10.8)
[2017-04-18 04:37] LABS: ALBUMIN 1.8 gm/dl (3.1-4.5); ALKALINE PHOSPHATASE 108 U/L (45-117); BUN 39 mg/dl (7-24); CHLORIDE 111 mmol/L (98-107); CREATININE 1.23 mg/dL (0.70-1.30); POTASSIUM 4.4 mmol/L (3.5-5.1); SGOT/AST 83 IU/L (3-35); SGPT/ALT 60 U/L (12-78); SODIUM 144 mmol/L (136-145); TOTAL PROTEIN 6.5 gm/dL (6.4-8.2)
[2017-04-18 04:40] LABS: BASOPHILS 1 % (0-1); PLATELET SUFFICIENCY NORMAL (NORMAL); TOTAL CELLS COUNTED 100 #CELLS
[2017-04-18 08:00] VITALS: BP 151/40
--- NOTE | 2017-04-18 08:15 | NUR ---
ALERT AND OIENTED TIMES THREE. PLEASANT AND COOPERATIVE. VITALS STABLE. PULSE OX 93% ON ROOM AIR. SCATTERED RHONCHI HEARD IN LUNG MAYNARD. PRODUCTIVE COUGH NOTED.
--- NOTE | 2017-04-18 08:30 | NUR ---
PLACED UP INTO CHAIR WITH ASSIST TIMES TWO. TOLERATED WELL.
--- NOTE | 2017-04-18 10:30 | NUR ---
REMAINS IN CHAIR. YELLS OUT "GET GASTON NICOLE." WHEN ASKED WHO THAT IS HE RESPONDS " NOW YOU KNOW WHO THAT IS." SHE IS MY NIECE. REORIENTED TO PLACE.
[2017-04-18 12:00] VITALS: BP 141/58
[2017-04-18 12:06] LABS: CKMB 1.7 ng/ml (0.5-3.6)
[2017-04-18 12:25] LABS: TROPONIN I 0.046 ng/ml (<0.045)
[2017-04-18 16:00] VITALS: BP 119/68
--- NOTE | 2017-04-18 16:06 | NUR ---
PT RESTING. NO ACUTE DISTRESS NOTED. PT DEIES C/O AT THIS TIME.
--- NOTE | 2017-04-18 18:35 | NUR ---
PT'S FRIENDS AND FAMILY HERE TO VISIT WITH PT. THE 2 MEN THAT PULLED PT OUT OF THE PLACE HE WAS LIVING IN TOLD ME THAT PT WAS LIVING IN A RAT INFESTED SHED. WHEN THEY FOUND HIM PT HAD RATS ALL OVER HIM "THEY WERE EATING HIM." THEY ALSO STATED THAT THERE IS MOLD GROWING ALL OVER THE SHED. PT SLEPT AT THE BOTTOM OF HIS FATHER'S BED THAT HAD NOT BEEN SLEPT IN FOR YEAR. "THERE IS 40 YEARS OF COBWEBS ON THAT BED BECAUSE HE SLEPT ON THE DIRT FLOOR AT THE FOOT OF THE BED. HE WOULD NOT SLEEP IN THE BED." PT'S FRIENDS ALSO STATED "YOU JUST CAN'T BELIEVE IF...IT'S WORSE THAN ANY HORROR MOVIE YOU'VE SEEN...." I ENCOURAGED FRIENDS AND FAMILY TO GO TO THE POLICE AND MAKE A REPORT.
[2017-04-18 20:00] VITALS: BP 113/52
--- NOTE | 2017-04-18 20:25 | NUR ---
PT. RESTING IN BED. INCONTINENT FOR LARGE AMT OF URINE, BANKS CATHETER REMOVED PRIOR TO SHIFT. PT. GIVEN BED BATH AND BED LINEN CHANGED, TOLERATED WELL. MOIST SMALL BUSINESS REPRESENTATIVE COUGH NOTED. HEP LOCK IN [place] ASYMPT. LUNGS HAVE DIFFUSE RHONCHI BILAT, PULSE OX 95% ON RA. ABDOMEN SOFTLY DISTENDED AND NORMO, OBESE. NO PERIPHERAL EDEMA NOTED. DRESSING TO BACK INTACT. GENERALIZED WEAKNESS NOTED. PT. ATTEMPTING TO COUGH UP MUCOUS. KENJI CUMMINS RN
[2017-04-19] VITALS: BP 101/35
--- NOTE | 2017-04-19 00:13 | NUR ---
PT. REMAINS INCONTINENT OF URINE, CONSTANT DRIPPING OF URINE. IVF CONTINUE ORDERED. PT. INCONTINENT OF LARGE AMTS OF URINE. ABLE TO SPIT MUCOUS, INSTRUCTED TO SPIT IN KLEENEX, BUT PATIENT SPITTING IN AIR. MOIST COUGH NOTED.
--- NOTE | 2017-04-19 00:15 | NUR ---
TYLENOL GIVEN AT 2247, FOR TEMP OF 101.6, CURRENTLY TEMP 99.5, TYLENOL EFFECTIVE.
[2017-04-19 04:00] VITALS: BP 117/50
[2017-04-19 04:11] LABS: HEMATOCRIT 43.6 % (42.0-52.0); MEAN CORPUSCULAR HGB 29.9 pg (27.0-31.0); MEAN CORPUSCULAR HGB CONC 32.1 g/dl (33.0-37.0); PLATELET COUNT AUTOMATED 302 10*3/uL (130-400); RED BLOOD COUNT 4.69 10*6/uL (4.50-5.90); RED CELL DISTRI WIDTH 13.7 % (0-14.5); WHITE BLOOD COUNT 19.5 10*3/uL (4.8-10.8)
[2017-04-19 04:28] LABS: ALBUMIN 1.8 gm/dl (3.1-4.5); CREATININE 1.45 mg/dL (0.70-1.30); POTASSIUM 4.4 mmol/L (3.5-5.1); TOTAL PROTEIN 6.4 gm/dL (6.4-8.2)
[2017-04-19 04:40] LABS: BASOPHILS 1 % (0-1); TOTAL CELLS COUNTED 100 #CELLS
[2017-04-19 04:41] LABS: PLATELET SUFFICIENCY NORMAL (NORMAL)
[2017-04-19 08:00] VITALS: BP 135/58
--- NOTE | 2017-04-19 08:00 | NUR ---
MEDICATED WITH 2 TYLENOL FOR TEMP 102 RECTALLY. HEART RATE 100. BP 132/58. SCATTERED RHONCHI HEARD IN LUNG MAYNARD. PULSE OX 96% ON 2L NASAL CANNULA.
--- NOTE | 2017-04-19 09:00 | NUR ---
DR. GOYAL HERE TO SEE PATIENT. VOICES "I FEEL LIKE I AM GOING TO ." JUST FEELS LOWSY ALL OVER. PULSE OX 96% ON 2L. SCATTERED RHONCHI HEARD IN LUNG MAYNARD. ALERT AND ORIENTED TIMES THREE.
--- NOTE | 2017-04-19 10:27 | NUR ---
RESTING IN BED WITH EYES CLOSED.
--- NOTE | 2017-04-19 11:55 | NUR ---
PHYSICAL THERAPY PAtient to ill for PT this date. PAtient with high fever and not feeling. Will attempt at a later date. Thank you for this referral. Belem Snider,PT
[2017-04-19 12:00] VITALS: BP 123/57
--- NOTE | 2017-04-19 12:14 | NUR ---
Patient unable to participate in OT evaluation this date as he had 102 fever and not feeling well.Nursing reports left shd pain and BUE stiffness today and was able to transfer +2 assist 04/18/17 and feed self. OTR will attempt at a later date. Thank you for this referral. Elena Hopkins OTR/Caroline
--- NOTE | 2017-04-19 14:17 | NUR ---
PHYSICAL THERAPY PAtient evaluated in [facility]U, full evaluation to follow. Continue with PT as per plan of care with fall, severe acute debility, new onset right hemiparesis and acute debility precautions. PAtient may require SNF versus LTAC for impaired mobility. PAtient is high complexity via chart review, tests and evaluation: 95233. Thak you for this referral. Belem Garcia,PT
--- NOTE | 2017-04-19 14:21 | NUR ---
interstate planner in to talk with patient about discharge planning. Explained I received an order for patient to go to skilled rehab for a little while to get stronger. Provided list of skilled facilities to patient, he agreed to [facility]. Contacted [facility] and faxed clinicals for review, however patient was too ill on this date to participate in either therapies. Will fax when appropriate.
--- NOTE | 2017-04-19 14:26 | NUR ---
SHERRILL STONE [id number] Please refer to the physician's history and physical for past medical history, comorbid conditions, and allergies. Diagnosis: SEVERE SEPSIS RHABDOMYOLYSIS DEHYDRATION Ben Score: 12,HIGH RISK WOUND DESCRIPTIONS: Location of the wound: upper mid back Type of wound: DTI Thickness: Full Size: 9.5cm x 9.0cm x 0.1cm Tunneling: none Undermining: none Sinus Tract: none Presence of Exudate: serosanguineous Amount: Light Color: Brown, yellow, red and purple Odor: None Periwound Skin Appearance: Normal Wound edges: approximated Pain (associated with wound): none at time of assessment How does patient state this happened? pt unsure how this happened Surface the patient is resting on: XPRT SKIN PREVENTION RECOMMENDATION: 1. Pressure redistribution support surface as appropriate 2. Elevate heels 3. Remove boots/TEDS every shift and reapply 4. Head of bed 30 degrees as tolerated 5. Assess nutrition and hydration 6. Manage moisture 7. Avoid the use of containment devices while in bed 8. Use absorptive products on surfaces limit layers of linens on bed 9. Turn and reposition every 1-2 hours in bed and every 1 hour in chair as tolerated 10. Weight shifts every 15 minutes while up in chair 11. Offloading with pillows or device to keep heels elevated off bed 12. Monitor skin at least every shift 13. Inspect under medical devices twice a day WOUND TREATMENT RECOMMENDATIONS: Clease mid upper back with nss and apply sureprep surrounding wound versatel to wound bed therahoney to wound bed cover with optifoam sacral gentle.
--- NOTE | 2017-04-19 14:37 | NUR ---
Occupational Therapy evaluation completed this date in ICCU when nursing requested patient be put in recliner. Precautions include fall risk, poor sit balance, right hemiparesis, unable to stand d/t poor RLE strength and poor trunk control, high complexity level 67894. Recommend OT per POC and inpatient rehab v.s. SNF to enable return to independent living. Thank you for this referral. Elena Hopkins OTR/L
--- NOTE | 2017-04-19 15:30 | NUR ---
ATTEMPTED TO VOID. BLADDER SCANNED FOR 950CC. BANKS PLACED FOR 900CC DARK TEA COLORED URINE.
[2017-04-19 16:00] VITALS: BP 132/62
[2017-04-19 20:00] VITALS: BP 143/55
--- NOTE | 2017-04-19 20:05 | NUR ---
PT. RESTING IN BED. UNABLE TO FEED HIMSELF DINNER DUE TO WEAKNESS. ATE 100% DINNER, ORDERED BOOST SHAKE DUE TO CHOKING ON LIQUID BOOST. IVF CONTIUE ORDERED VIA KEYANA, SITE ASYMPT. LUNGS HAVE DIFFUSE RHONCHI BILAT, PULSE OX 96% ON 2L NC. ABDOMEN SOFTLY DISTENDED AND NORMO. BANKS CATHETER DRAINING A CLEAR YELLOW URINE. NO PERIPHERAL EDEMA NOTED. RESP. EASY AND REG, NO DISTRESS. KENJI CUMMINS RN
[2017-04-20] VITALS: BP 122/48
[2017-04-20 04:00] VITALS: BP 133/49
--- NOTE | 2017-04-20 04:22 | NUR ---
PT. FELT WARM TO TOUCH WHEN REASSESSED FOR 0, RECTAL TEMP 103.2. TYLENOL GIVEN PO ORDERED. PT. CHOKING ON BOOST. SUCTIONED ORALLY WITH CATH AND GLOVE FOR LARGE AMT OF LIQUID AND MUCOUS. PULSE OX 89% ON 2L NC, INCREASED 02 TO 4L NC. WILL CONTINUE TO MONITOR. KENJI CUMMINS RN
--- NOTE | 2017-04-20 04:31 | NUR ---
PT. IS CHOKING ON LIQUIDS AND SOME FOODS. NEEDED SUCTIONED THIS AM AFTER DRINKING BOOST. WOULD YOU CONSIDER A SWALLOWING EVALUATION? THANKS
[2017-04-20 04:51] LABS: BASO % 0.2 % (0.0-1.0); EOS # 0.1 10*3/uL (0.0-0.4); EOS % 0.6 % (1.0-4.0); HEMOGLOBIN 13.5 g/dl (14.0-18.0); LYMPH # 1.2 10*3/uL (1.3-4.4); LYMPH % 6.7 % (27.0-41.0); MEAN CORPUSCULAR HGB 30.2 pg (27.0-31.0); MEAN CORPUSCULAR HGB CONC 32.1 g/dl (33.0-37.0); MEAN PLATELET VOLUME 9.8 fl (9.6-12.3); MONO # 1.5 10*3/uL (0.1-1.0); MONO % 8.4 % (3.0-9.0); NEUT # 14.3 10*3/uL (2.3-7.9); NEUT % 82.7 % (47.0-73.0); PLATELET COUNT AUTOMATED 339 10*3/uL (130-400); RED BLOOD COUNT 4.47 10*6/uL (4.50-5.90); RED CELL DISTRI WIDTH 13.9 % (0-14.5); WHITE BLOOD COUNT 17.4 10*3/uL (4.8-10.8)
[2017-04-20 05:07] LABS: ALBUMIN 1.5 gm/dl (3.1-4.5); CREATININE 1.83 mg/dL (0.70-1.30); POTASSIUM 4.8 mmol/L (3.5-5.1); TOTAL PROTEIN 5.9 gm/dL (6.4-8.2)
--- NOTE | 2017-04-20 05:15 | NUR ---
PT'S REPEAT TEMP 102.7, TYLENOL MINIMALLY EFFECTIVE. WILL CONTINUE TO MONITOR. KENJI CUMMINS RN
--- NOTE | 2017-04-20 05:21 | NUR ---
DR. HUNT UPDATED TO PATIENT STATUS CHOKING AND ELEV TEMP OF 103.2 AND REPEAT OF 102.7. KENJI CUMMINS RN
--- NOTE | 2017-04-20 06:30 | NUR ---
P'S REPEAT TEMP IS 100.5.
--- NOTE | 2017-04-20 07:13 | NUR ---
0659 - RAPID RESPONSE CALLED DUE TO PATIENT BRADYCARDIAC RHYTHM IN 40'S. ATTEMPTS TO AROUSE PATIENT WITH STERNAL RUB UNSUCCESSFUL. CODE BLUE CALLED PT. APNEIC WITH NO PULSE PALPABLE. CPR/ACLS IN PROCESS. PT. INTUBATED WITH A #8, 24 CM AT THE LIP. OGT PLACED AND STAT EKG AND CHEST X-RAY OBTAINED. KNEJI CUMMINS RN
--- NOTE | 2017-04-20 07:25 | NUR ---
ENDOTUBE RETRACTED TO 22CM PER ORDER OF AFTER SHE VIEWED CXR DR BARBOUR. CXR RETAKEN AND PLACEMENT VERIFIED BY DR VILLAFUERTE. IV LEVOPHED GTT STARTED AT 10MCG FOR SBP 70.
--- NOTE | 2017-04-20 07:30 | NUR ---
IV LEVOPHED DECREASED TO 5 MCG FOR SBP 128.
--- NOTE | 2017-04-20 07:40 | NUR ---
IV LEVOPHED TURNED OFF FOR SBP 122.
--- NOTE | 2017-04-20 07:45 | NUR ---
IV LEVOPHED RESTARTED AT 5 MICS FOR SBP 74 AFTER IV DIPRIVAN STARTED FOR PT'S SEDATION.
--- NOTE | 2017-04-20 07:50 | NUR ---
DR BOYLE AND OTHER RESIDENTS HERE TO PLACE [facility]LC IN PT.
[2017-04-20 08:00] VITALS: BP 117/47
--- NOTE | 2017-04-20 08:19 | NUR ---
PHYSICAL THERAPY PAtient with medical difficulties at this time. No PT this date. Will check on patients status at a later date. Belem Snider,PT
--- NOTE | 2017-04-20 09:15 | NUR ---
DR BECERRIL IN TO SEE PT. UPDATED HIM ON PLAN OF CARE.
[2017-04-20 09:17] LABS: ABG HCO3 20.3 mmol/l (22-26); ABG O2 SATURATION 95.3 % (95-97); ARTERIAL BLOOD GAS PCO2 44.1 mmHg (35-45); ARTERIAL BLOOD GAS PH 7.29 (7.35-7.45); ARTERIAL BLOOD GAS PO2 86.5 mmHg (80-90)
[2017-04-20 09:18] LABS: ABG BASE EXCESS -5.4 mmol/L (-2.0-2.0)
--- NOTE | 2017-04-20 09:20 | NUR ---
IV LEVOPHED GTT TITRATED TO 4 MICS R/T MAP OF 74.
--- NOTE | 2017-04-20 09:36 | NUR ---
PT'S FAMILY IN TO VISIT. UPDATED THEM ON PT'S CONDITION AND PLANS TO TRANSFER PT TO [place]. FAMILY AGREED TO TRANSFER.
--- NOTE | 2017-04-20 10:06 | NUR ---
IV LEVOPHED GTT TITRATED TO 3 MICS FOR MAP OF 72.
[2017-04-20 12:00] VITALS: BP 121/50
--- NOTE | 2017-04-20 12:24 | NUR ---
PT TRANSFERED TO [facility]. PT REPORT GIVEN TO RECEIVING NURSE AT [facility].
--- NOTE | 2017-04-21 16:12 | NUR ---
PHYSICAL THERAPY CO-SIGN I approve of the Phyical Therapy notes written above. NASREEN DAMON PT
== END 2017-04-20 12:24 | disposition short-term general hospital (02) | DRG 871 ==
LOC: ED 16:17 → EDHOLD 17:27 → ICCU 17:27
PROVIDERS: Emergency Medicine; Family Medicine; Internal Medicine; Internal Medicine Critical Care Medicine; Internal Medicine Nephrology; ADMIT Internal Medicine
PROC: 0BH17EZ Insertion of Endotracheal Airway into Trachea, Via Natural or Artificial Opening (ICD-10-PCS; principal; 2017-04-20)
PROC: 5A1935Z Respiratory Ventilation, Less than 24 Consecutive Hours (ICD-10-PCS; 2017-04-20)
PROC: 02HV33Z Insertion of Infusion Device into Superior Vena Cava, Percutaneous Approach (ICD-10-PCS; 2017-04-20)
PROC: B548ZZA Ultrasonography of Superior Vena Cava, Guidance (ICD-10-PCS; 2017-04-20)
PROC: 5A12012 Performance of Cardiac Output, Single, Manual (ICD-10-PCS; 2017-04-20)
DX: A41.50 Gram-negative sepsis, unspecified (principal); G93.41 Metabolic encephalopathy; N17.0 Acute kidney failure with tubular necrosis; J96.00 Acute respiratory failure, unspecified whether with hypoxia or hypercapnia; E43 Unspecified severe protein-calorie malnutrition; J18.1 Lobar pneumonia, unspecified organism; E87.2 Acidosis; M62.82 Rhabdomyolysis; I46.9 Cardiac arrest, cause unspecified; N39.0 Urinary tract infection, site not specified; R65.20 Severe sepsis without septic shock; R31.9 Hematuria, unspecified; E86.0 Dehydration; R74.0 Nonspecific elevation of levels of transaminase and lactic acid dehydrogenase [LDH]; E83.41 Hypermagnesemia; F17.210 Nicotine dependence, cigarettes, uncomplicated; G89.29 Other chronic pain; I10 Essential (primary) hypertension; M54.16 Radiculopathy, lumbar region; J44.9 Chronic obstructive pulmonary disease, unspecified; J61 Pneumoconiosis due to asbestos and other mineral fibers; E66.01 Morbid (severe) obesity due to excess calories; I49.8 Other specified cardiac arrhythmias; I95.9 Hypotension, unspecified; B96.4 Proteus (mirabilis) (morganii) as the cause of diseases classified elsewhere; E11.65 Type 2 diabetes mellitus with hyperglycemia; E11.21 Type 2 diabetes mellitus with diabetic nephropathy; R33.9 Retention of urine, unspecified; Z71.6 Tobacco abuse counseling; Z79.899 Other long term (current) drug therapy; Z91.14 Patient's other noncompliance with medication regimen; Z80.9 Family history of malignant neoplasm, unspecified; Z68.29 Body mass index [BMI] 29.0-29.9, adult